=== PATIENT | female | born 1965 | race American Indian/Alaskan Native ===

== ENCOUNTER 2017-02-16 06:44 | Emergency (ER) | payer SELFPAY ==
[2017-02-16] MEDS ORDERED: FLEXERIL PO ONE (07:44)
[2017-02-16] MEDS ORDERED: MOTRIN PO ONE (07:44)
[2017-02-16] MEDS ORDERED: NORCO 5/325 PO ONE (07:44)
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
[2017-02-16 09:24] VITALS: BP 121/69
== END 2017-02-16 09:23 | disposition home or self-care (01) ==
LOC: ED 06:44
DX: M79.672 Pain in left foot (principal); V49.49XA Driver injured in collision with other motor vehicles in traffic accident, initial encounter; Y93.89 Activity, other specified; Y92.89 Other specified places as the place of occurrence of the external cause; Y99.8 Other external cause status
CPT/HCPCS: 99283